=== PATIENT | male | born 1950 | race Caucasian/White ===

== ENCOUNTER 2020-03-25 12:35 | Inpatient (IN) | payer MEDICARE, OTHER ==
[2020-03-25] VITALS (18 sets, daily range): BP systolic 104–152; BP diastolic 52–81
[~2020-03-25] VITALS: Ht 177.8 cm; Wt 115.7 kg
[~2020-03-25 12:35] MED LIST: ACCUNEB SO1.25 MG/1 INH; ASPIR 8181 MG PO; CALCIUM CITRAT480 GM PO; COZAAR 50 MG TA50 M1 PO; D3-5050000 UNIT PO; FLEXERIL PO; FORADIL12 MCG IH; IRON325 PO; METFORMIN HCL500 MG PO; MULTIVITAMINS1 EAC7 PO; NITROGLYCERIN0.4 MG SUBLING; OMEPRAZOLE20 M1 PO; PANTOPRAZOLE SO40 M1 PO; PLAVIX 75 MG TA75 M1 PO; TYLENOL EXTRA500 MG PO; ZOCOR20 MG PO
[2020-03-25 13:00] LABS: ABSOLUTE BASOPHILS 0.1 thou/uL (0.0-0.2); ABSOLUTE EOSINOPHILS 0.2 thou/uL (0.0-0.7); ABSOLUTE MONOCYTES 0.6 thou/uL (0.0-1.2); ABSOLUTE NEUTROPHILS 6.9 thou/uL (1.6-8.1); BASOPHILS 0.8 %; EOSINOPHILS 2.2 %; HEMATOCRIT 43.4 % (42.0-52.0); HEMOGLOBIN 15.3 gm/dL (14.0-18.0); LYMPHOCYTES 27.4 %; MCH 31.7 pg (26.0-34.0); MCHC 35.2 g/dL (28.0-37.0); MONOCYTES 5.9 %; MPV 9.4 fl. (7.2-11.1); NUCLEATED RBCS 0 /100WBC; PLATELET COUNT* 241 thou/uL (150-400); POLYS 63.7 %; RBC 4.82 mil/uL (4.50-6.00); RDW-CV 14.7 % (10.5-14.5); WBC 10.8 thou/uL (4.0-11.0)
[2020-03-25 13:14] LABS: CREATININE 1.4 mg/dL (0.6-1.3); POTASSIUM 3.9 mmol/L (3.5-5.1)
[2020-03-25 13:15] LABS: APTT 23.1 Seconds (25.0-31.3); PROTIME 10.7 Seconds (9.20-11.50)
[2020-03-25 13:26] LABS: ALBUMIN 4.2 g/dL (3.4-5.0); TOTAL BILIRUBIN 0.6 mg/dL (<0.1-1.0); TOTAL PROTEIN 7.8 g/dL (6.4-8.2)
[2020-03-25] MEDS ORDERED: CHLORTHALIDONE25 MG PO (13:49)
[2020-03-25] MEDS ORDERED: JARDIANCE25 MG PO (13:50)
[2020-03-25] MEDS ORDERED: TOPROL XL25 MG PO (13:51)
[2020-03-25] MEDS ORDERED: OLODATEROL (13:52)
[2020-03-25] MEDS ORDERED: MIRALAX119 GM PO (13:52)
--- NOTE | 2020-03-25 16:52 | CARD ---
[address] [address] CARDIAC CATH REPORT Name: JORDEN ARGUELLO JR Room: [address] IN [facility]#: [id number] Admission: 03/25/20 Attend Phys: Brennon Kapadia MD, Discharge: Date of : 52 Report #: [id number] THIS REPORT FOR: //name// cc: CAITLIN QUINTANILLA MD, CHADWICK MD ~ APPROVED REPORT Study performed: 03/25/2020 12:30:30 Patient Details Patient Status: ED Room #: The patient is a 70 year-old male Event Personnel Brennon Kapadia State [employer] Agent, Lorena Raman RN, Pradeep Huber RTR Scrub, Farzaneh Meeks RTR Monitor Procedures Performed Art Access - R femoral artery Left Heart Cath w/or w/o Coronaries WINTER Revasc AMI Total/Sub Single DIAG Hemostasis w/ Angioseal Indication STEMI Risk Factors Hypercholesterolemia, Hypertension Previous Procedures/Diagnoses Previous PCI Admission/Lab Medications/Medications given during procedure Angiomax bolus and infusion Procedure Narrative The patient was brought emergently to the Cardiac Catheterization Laboratory and was prepped and draped in a sterile manner. The right femoral was infiltrated with 2% Lidocaine subcutaneous anesthesia. A [place] 6 FR sheath was inserted into the right femoral artery. Coronary angiography was performed using coronary diagnostic catheters. The right coronary system was accessed and visualized with a Diagnostic 6 Fr JR 4 catheter. The left coronary system was accessed and visualized with a Diagnostic 6 Fr JL 4 catheter. The left ventricle was accessed and visualized with a Diagnostic 6 Fr Pigtail catheter. Left ventricular/[place] [address] CARDIAC CATH REPORT Name: JORDEN ARGUELLO JR Room: [address]#: [id number] Admission: 03/25/20 Attend Phys: Brennon Kapadia MD, Discharge: Date of : 51 Report #: [id number] catheter pullback. Left ventriculogram was performed in PELAEZ projection. Pre-demployment femoral angiogram was performed . Closure device was deployed with a Fr Angioseal STS 6Fr. The patient tolerated the procedure well and there were no complications associated with the procedure. There was no hematoma. Intraoperative Conscious Sedation No sedation was given. Case start time was 13: 12 and case end time was 14:18. Fluoro Time: 11.3 minutes Dose: DAP 308915 cGycm2 1588 mGy Contrast Type and Amount: Visipaque 240 ml Diagnostic Cath Left Main 0% narrowing LAD 80% mid LAD stenosis with 100% occlusion of the first diagonal branch with intraluminal thrombus Circumflex 75% narrowing of the midportion of the first posterolateral branch of the distal circumflex Right Coronary Dominant vessel with 30% proximal and distal narrowings Left Ventriculography The left ventricle is normal in size with normal contractility. The left ventricular ejection fraction is estimated to be 65%. Left ventricular wall motion abnormalities are present. There is no mitral insufficiency. Mild high anterolateral hypokinesis is noted Hemodynamics The aortic pressure is 147/64 mmHg with a mean of 98 mmHg. The left ventricular pressure is 139/3 mmHg with a mean of mmHg. The left ventricular end diastolic pressure is 25 mmHg. There was no gradient across the aortic valve upon pullback. PCI Technique Lesion Anticoagulation was achieved with Angiomax Drip. Patient was preloaded with Angiomax IV 17 ml. Percutaneous coronary intervention was performed on the first diagnonal branch segment. The lesion stenosis prior to intervention was 100% with JOSE MANUEL 0 flow. A 6F XB LAD 4.0 Guide Catheter was used to engage the left ostium. A IG: ProwaterFlex 180CM Interventional Guidewire was used to cross the [place] [address] CARDIAC CATH REPORT Name: JORDEN ARGUELLO JR Room: [address]#: [id number] Admission: 03/25/20 Attend Phys: Brennon Kapadia MD, Discharge: Date of : 51 Report #: [id number] A Balloon catheter Euphora SC 2.0x12mm was inserted and inflated up to 14.00atm for 9seconds. Additional Inflation: 16.00atm for 9seconds. Additional Inflation: 10.00atm for 7seconds. STENT DEPLOYMENT A drug-eluting stent [place] RX Stent 2.0X26mm was inserted and inflated up to 8.00atm for 8seconds. Additional Inflation: 9.00atm for 13seconds. POST STENT DEPLOYMENT BALLOON DILATION A Balloon catheter NC Euphora 2.25x 12 was inserted and inflated up to 10.00atm for 9seconds. Additional Inflation: 17.00atm for 8seconds. Additional Inflation: 18.00atm for 9seconds. Final angiography reveals 0 % stenosis with JOSE MANUEL 3 flow. COMMENTS Patient developed persistent accelerated idioventricular rhythm which remitted after 150 mg of amiodarone as a bolus over 3 minutes Conclusion 1. Acute anterolateral and high lateral STEMI 2. Significant coronary artery disease characterized by the following: A 80% mid LAD stenosis with 100% occlusion of the first diagonal branch of the LAD within a previously stented segment B 75% narrowing of the midportion of the first posterolateral branch of the nondominant circumflex C 30% proximal and distal narrowings of the dominant right coronary artery 2. Normal global left ventricular systolic function, estimated ejection fraction 65% with mild high anterolateral hypokinesis 3. Moderately severe elevation of left ventricular and diastolic pressure at rest 4. Successful PCI with deployment of drug-eluting stent at the site of 100% first diagonal occlusion with 0% residual narrowing JOSE MANUEL-3 flow to the distal [place] [address] CARDIAC CATH REPORT Name: JORDEN ARGUELLO JR Room: [address]#: [id number] Admission: 03/25/20 Attend Phys: Brennon Kapadia MD, Discharge: Date of : 51 Report #: [id number] Recommendations Cardiac Risk Reduction Program Aggressive Medical Therapy Medications Administered Ticagrelor Diagnostic Cath Approved by: Brennon Kapadia MD Date/Time: 03/25/2020 16:47:43 <ELECTRONICALLY SIGNED> By: Brennon Kapadia MD, FACC 03/25/20 165 50 50Brennon Kapadia MD, FAC /INF
--- NOTE | 2020-03-25 18:46 | NUR ---
PATIENT ADMITTED TO ROOM FOR STEMI ADMISSION. STABLE VITALS AT THIS TIME. AXOX4, ASSESSMENT CHARTED. NO CHEST PAIN AT THIS TIME. ANGIOSEAL GROIN SITE C/D/I. NO HEMATOMA. CAN BE OFF BEDREST AT 1900 THIS EVENING. CPAP AND CELL PHONE BROUGHT UP BY AND IN ROOM. NO CONCERNS AT THIS TIME. BED IN LOWEST POSITIN, CALL LIGHT IN REACH, PIPING DESIGN SPECIALIST IN PLACE.
[2020-03-26] VITALS (15 sets, daily range): BP systolic 110–148; BP diastolic 48–87
--- NOTE | 2020-03-26 04:02 | NUR ---
ASSUMED CARE AT 1900H, ON NC AT 2LPM AND TOLERATED. NO DISTRESS NOTED. NO CHEST PAIN AND NO BLEEDING NOTED. NO HEMATOMA ON THE GROIN. PT USED HIS CPAP AND SLEPT WELL. CONTINUE MONITORING AND TOWARD GOALS.
[2020-03-26 05:13] LABS: HEMATOCRIT 40.8 % (42.0-52.0); MCH 31.2 pg (26.0-34.0); MCHC 34.4 g/dL (28.0-37.0); MCV 90.5 fL (80.0-100.0); MPV 9.2 fl. (7.2-11.1); RBC 4.5 mil/uL (4.50-6.00); RDW-CV 14.7 % (10.5-14.5); WBC 9.5 thou/uL (4.0-11.0)
--- NOTE | 2020-03-26 07:28 | EKG ---
[place] [address] ELECTROCARDIOGRAM REPORT Name: JORDEN ARGUELLO JR Room: [address] IN ..#: [id number] Admission: 03/25/20 Attend Phys: Elia Chatman, Discharge: Date of : 52 Date of Service: 03/25/20 1542 Report #: [id number] THIS REPORT FOR: //name// [facility] Test Date: 2020-03-25 Test Time: 15:42:20 Pat Name: JORDEN ARGUELLO Department: Room: [facility] Gender: M Solderer: JESÚS : 1950 Requested By: Allie Singh Order Number: [id number] MD: Rio Chapman Measurements Intervals [place] Rate: 70 P: -25 SD: 256 QRS: 72 QRSD: 93 T: -23 QT: 397 QTc: 429 Interpretive Statements Sinus rhythm Ventricular premature complexes Prolonged SD interval Low voltage, extremity leads Minimal ST depression, inferior leads Compared to ECG 06/15/2019 08:15:16 Ventricular premature complex(es) now present Low QRS voltage now present ST (T wave) deviation now present Electronically Signed On 03-26-2020 7:26:54 CDT by Rio Chapman [email or web address] <ELECTRONICALLY SIGNED> By: Rio Chapman MD, [facility] 03/26/20 0726 1542 1542 Rio Chapman MD, [facility] /EPI
[2020-03-26 08:46] LABS: ALBUMIN 3.5 g/dL (3.4-5.0); ALKALINE PHOSPHATASE 50 U/L (46-116); ANION GAP 9 mmol/L (7-16); BUN 18 mg/dL (7-18); CALCIUM 8.5 mg/dL (8.5-10.1); CHLORIDE 106 mmol/L (98-107); CHOLESTEROL 123 mg/dL (<200); CO2 27 mmol/L (21-32); CREATININE 1.2 mg/dL (0.6-1.3); GLUCOSE 183 mg/dL (70-99); HDL CHOLESTEROL 35 mg/dL (>40); LDL CHOLESTEROL 52 mg/dL (<100); POTASSIUM 3.9 mmol/L (3.5-5.1); SERUM ASSESSMENT Clear; SGOT 59 U/L (15-37); SGPT 31 U/L (30-65); SODIUM 142 mmol/L (136-145); TC:HDL 3.5 Ratio (Not establshd); TOTAL BILIRUBIN 0.7 mg/dL (<0.1-1.0); TOTAL PROTEIN 6.8 g/dL (6.4-8.2); TRIGLYCERIDE 184 mg/dL (<150); VLDL 37 mg/dL (<40)
--- NOTE | 2020-03-26 09:29 | NUR ---
8550 ASSUMED CARE OF PATIENT. PLEASE SEE DOCUMENTED ASSESSMENT. CPAP OFF AND ON ROOM AIR
--- NOTE | 2020-03-26 12:01 | NUR ---
ICU rounds: Tele status. Pt to have a repeat cath tomorrow. Pt resides at home with his . Active and independent. Pt uses a cpap at night, no other DME. Hx of HH post knee replacement, no hx of SNF. Goal is home at dc, per Pt anticipate dc on . Following.
--- NOTE | 2020-03-26 15:25 | EKG ---
[place] [address] ELECTROCARDIOGRAM REPORT Name: JORDEN ARGUELLO JR Room: [address] ADM IN .R.#: [id number] Admission: 03/25/20 Attend Phys: Elia Chatman, Discharge: Date of : 52 Date of Service: 03/25/20 1236 Report #: [id number] THIS REPORT FOR: //name// [facility] ED Test Date: 2020-03-25 Test Time: 12:36:39 Pat Name: JORDEN ARGUELLO Department: Room: [facility] Gender: M Lamp Shade Maker: ALVIN : 1950 Requested By: Brennon Kapadia Order Number: [id number] Therese MD: Rio Chapman Measurements Intervals [place] Rate: 93 P: -19 AK: 178 QRS: 12 QRSD: 90 T: -38 QT: 364 QTc: 453 Interpretive Statements Sinus rhythm Multiple premature complexes, vent & supraven Repol abnrm suggests ischemia, inferior leads ST elevation, consider lateral injury Baseline wander in lead(s) V2 Compared to ECG 06/15/2019 08:15:16 Early repolarization now present Possible ischemia now present ST (T wave) deviation now present Myocardial infarct finding now present First degree AV block no longer present Electronically Signed On 03-26-2020 15:23:58 CDT by Rio Chapman [email or web address] <ELECTRONICALLY SIGNED> By: Rio Chapman MD, [facility] 03/26/20 1523 1236 1236 Rio Chapman MD, [facility] /EPI
--- NOTE | 2020-03-26 15:29 | EKG ---
[place] [address] ELECTROCARDIOGRAM REPORT Name: JORDEN ARGUELLO JR Room: [address] IN .R.#: [id number] Admission: 03/25/20 Attend Phys: Elia Chatman, Discharge: Date of : 52 Date of Service: 03/26/20 0600 Report #: [id number] THIS REPORT FOR: //name// [facility] Test Date: 2020-03-26 Test Time: 06:00:59 Pat Name: JORDEN ARGUELLO Department: Room: [facility] Gender: M Injury Prevention Coordinator: [id number] : 1950 Requested By: Brennon Kapadia Order Number: [id number] Therese MD: Rio Chapman Measurements Intervals [place] Rate: 60 P: -50 NV: 269 QRS: 48 QRSD: 103 T: 15 QT: 399 QTc: 399 Interpretive Statements Sinus rhythm Multiple premature complexes, vent & supraven Prolonged NV interval Low voltage, extremity leads Compared to ECG 03/25/2020 15:42:20 No significant changes noted Electronically Signed On 03-26-2020 15:27:53 CDT by Rio Chapman [email or web address] <ELECTRONICALLY SIGNED> By: Rio Chapman MD, [facility] 03/26/20 1527 9 06 Rio Chapman MD, [facility] /EPI
--- NOTE | 2020-03-26 17:08 | NUR ---
PATIENT PROGRESSING TOWARDS GOALS. PT IS NOW TELE STATUS. UP IN CHAIR MOST OF DAY. EDUCATED WITH CARDIAC REHAB.TITRATED TO ROOM AIR. GROIN SITE BENIGN. PLAN IS FOR CARDIAC CATH TOMORROW. CONSENT HAS BEEN OBTAINED. PT HAS BEEN IN CONTACT WITH FAMILY VIA PHONE.
[2020-03-27] VITALS (15 sets, daily range): BP systolic 110–166; BP diastolic 61–86
[2020-03-27 04:02] LABS: ABSOLUTE EOSINOPHILS 0.2 thou/uL (0.0-0.7); ABSOLUTE LYMPHOCYTES 1.8 thou/uL (0.8-5.3); ABSOLUTE MONOCYTES 0.5 thou/uL (0.0-1.2); ABSOLUTE NEUTROPHILS 4.4 thou/uL (1.6-8.1); BASOPHILS 0.4 %; EOSINOPHILS 2.6 %; HEMATOCRIT 40.1 % (42.0-52.0); HEMOGLOBIN 13.9 gm/dL (14.0-18.0); LYMPHOCYTES 26.3 %; MCH 31.3 pg (26.0-34.0); MCHC 34.6 g/dL (28.0-37.0); MCV 90.5 fL (80.0-100.0); MONOCYTES 6.6 %; MPV 8.9 fl. (7.2-11.1); NUCLEATED RBCS 0 /100WBC; PLATELET COUNT* 173 thou/uL (150-400); POLYS 64.1 %; RBC 4.43 mil/uL (4.50-6.00); RDW-CV 14.7 % (10.5-14.5); WBC 6.9 thou/uL (4.0-11.0)
[2020-03-27 04:27] LABS: CALCIUM 8.3 mg/dL (8.5-10.1); CREATININE 1.1 mg/dL (0.6-1.3); POTASSIUM 3.7 mmol/L (3.5-5.1)
--- NOTE | 2020-03-27 04:43 | NUR ---
ASSUMED CARE AT 1900H, ON RA AND TOLERATED. SEEN ON CHAIR. AMBULATED IN THE ROOM WITH NO SOA AND CHEST PAIN. NO BLEEDING AND NO CHANGES IN EKG. ON CPAP WHEN SLEEPING. FOR MONKEY KEEPER TODAY AT NOON AND KEPT ON CLEAR LIQUID DIET. CONSENT SIGNED AND ATTACHED IN THE CHART. CONTINUE MONITORING AND TOWARD GOALS.
--- NOTE | 2020-03-27 09:22 | NUR ---
RECEIVED REPORT FROM BECKIE CALDERON. PT TO [facility] FLOOR AROUND 0855. PT A&O X4, VSS. THIS RN AGREES WITH THE ASSESSMENT AND CHARTING OF BECKIE CALDERON. PT DENIES PAIN. NO CONCERNS. FLUIDS INFUSING. MEDS PER EMAR. PT TO GO FOR CATH LATER TODAY. TORCH CUTTER PLACED. PT CURRENTLY SITTING UP IN BEDSIDE CHAIR. CALL LIGHT IS WITHIN REACH. HOURLY ROUNDING PERFORMED. LOW FALL RISK PRECAUTIONS IN PLACE.
--- NOTE | 2020-03-27 12:46 | NUR ---
ICU rounds: Pt to have repeat cath today, plan dc to home tomorrow.
--- NOTE | 2020-03-27 17:12 | EKG ---
[place] [address] ELECTROCARDIOGRAM REPORT Name: JORDEN ARGUELLO JR Room: [address] ADM IN M.R.#: [id number] Admission: 03/25/20 Attend Phys: Garrick Bryan Discharge: Date of : 52 Date of Service: 03/27/20 1505 Report #: [id number] THIS REPORT FOR: //name// [facility] Test Date: 2020-03-27 Test Time: 15:05:15 Pat Name: JORDEN JOS Department: Room: [address] Gender: M Kiln Feeder: JESÚS : 1950 Requested By: Brennon Kapadia Order Number: [id number] Therese MD: Brennon Kapadia Measurements Intervals [place] Rate: 61 P: -35 SC: 255 QRS: 48 QRSD: 105 T: 85 QT: 433 QTc: 437 Interpretive Statements Sinus rhythm Prolonged SC interval Low voltage, extremity leads Nonspecific T abnormalities, lateral leads Compared to ECG 03/26/2020 06:00:59 T-wave abnormality now present Electronically Signed On 03-27-2020 17:10:50 CDT by Brennon Kapadia [email or web address] <ELECTRONICALLY SIGNED> By: Brennon Kapadia MD, [facility] 03/27/20 1710 1505 1505 Brennon Kapadia MD, [facility] /EPI
--- NOTE | 2020-03-27 18:00 | NUR ---
PT COMPLETED CATH AND ARRIVED BACK TO TELE FLOOR. POST CATH VITALS CHARTED. PT WITH NO COMPLAINTS FOR THE REST OF THE SHIFT. ABLE TO GET UP AT 2000. FALL PRECAUTIONS IN PLACE. CALL LIGHT IS WITHIN REACH. HOURLY ROUNDING PERFORMED.
[2020-03-28] VITALS: BP 131/73
--- NOTE | 2020-03-28 04:30 | NUR ---
ASSUMED PT CARE AT APPROX 1930. PT IS AWAKE AND ORIENTED X4. PT IS TRACING SR w/1DAVB ON THE SPEEDBOAT OPERATOR. PT DENIES CHEST PAIN/DISCOMFORT. DRESSING ON RIGHT GROIN REMAINS CDI. NO ACUTE CHANGES OVERNIGHT. CALL LIGHT WITHIN REACH. HOURLY ROUNDING DONE FOR PT SAFETY.
[2020-03-28 04:50] VITALS: BP 138/80
[2020-03-28 05:05] LABS: ABSOLUTE EOSINOPHILS 0.2 thou/uL (0.0-0.7); ABSOLUTE LYMPHOCYTES 1.4 thou/uL (0.8-5.3); ABSOLUTE MONOCYTES 0.5 thou/uL (0.0-1.2); BASOPHILS 0.3 %; EOSINOPHILS 2.7 %; HEMATOCRIT 37.4 % (42.0-52.0); LYMPHOCYTES 19.3 %; MCH 31.6 pg (26.0-34.0); MCHC 34.8 g/dL (28.0-37.0); MCV 90.6 fL (80.0-100.0); MPV 8.9 fl. (7.2-11.1); NUCLEATED RBCS 0 /100WBC; PLATELET COUNT* 160 thou/uL (150-400); POLYS 70.7 %; RBC 4.12 mil/uL (4.50-6.00); RDW-CV 14.3 % (10.5-14.5); WBC 7.1 thou/uL (4.0-11.0)
[2020-03-28 05:32] LABS: ALBUMIN 3.2 g/dL (3.4-5.0); CALCIUM 7.9 mg/dL (8.5-10.1); CREATININE 1.1 mg/dL (0.6-1.3); POTASSIUM 3.5 mmol/L (3.5-5.1); TOTAL BILIRUBIN 0.6 mg/dL (<0.1-1.0); TOTAL PROTEIN 5.9 g/dL (6.4-8.2)
[2020-03-28 05:42] LABS: TROPONIN-I LEVEL 3.47 ng/mL (<0.06)
[2020-03-28 08:00] VITALS: BP 130/74
[2020-03-28] MEDS ORDERED: BRILINTA90 MG PO (11:53)
[2020-03-28 12:00] VITALS: BP 131/69
--- NOTE | 2020-03-28 12:03 | CARD ---
[address] [address] CARDIAC CATH REPORT Name: JORDEN ARGUELLO JR Room: [address] IN [facility]#: [id number] Admission: 03/25/20 Attend Phys: Brennon Kapadia MD, Discharge: Date of : 51 Report #: [id number] THIS REPORT FOR: //name// cc: CAITLIN QUINTANILLA MD, CHADWICK MD ~ ADDENDUM APPROVED REPORT Study performed: 03/27/2020 13:05:09 Patient Details Patient Status: In-Patient Room #: The patient is a 70 year-old male Event Personnel Brennon Kapadia Bark Grinder, Thomas Plaza Kramer, Jessie RTR Monitor, Filippo Mitchell RN glass cleaner Performed Art Access - R femoral artery Left Heart Cath w/or w/o Coronaries WINTER w/Atherectomy Single LAD Hemostasis w/ Angioseal Indication Unstable angina Risk Factors Hypercholesterolemia, Hypertension Previous Procedures/Diagnoses Previous PCI, Previous MT Admission/Lab Medications/Medications given during procedure Angiomax bolus and infusion Procedure Narrative The patient was brought urgently to the Cardiac Catheterization Laboratory and was prepped and draped in a sterile manner. The right femoral was infiltrated with 2% Lidocaine subcutaneous anesthesia. A [place] 6 FR sheath was inserted into the right femoral artery. Coronary angiography was performed using coronary diagnostic catheters. The right coronary system was accessed and visualized with a Diagnostic 6 Fr JR 4 catheter. The left coronary system was accessed and visualized with a Diagnostic 6 Fr JL 4 catheter. The left ventricle was accessed and visualized with a Diagnostic 6 Fr Pigtail catheter. Left ventricular/Aortic Valve gradient assessed via catheter pullback. Pre-demployment femoral [place]ogram [place] [address] CARDIAC CATH REPORT Name: JORDEN ARGUELLO JR Room: [address]#: [id number] Admission: 03/25/20 Attend Phys: Brennon Kapadia MD, Discharge: Date of : 51 Report #: [id number] Closure device was deployed with a Fr Angioseal STS 6Fr. The patient tolerated the procedure well and there were no complications associated with the procedure. There was no hematoma. Intraoperative Conscious Sedation Sedation start time: 13:45 Case end Time: 14:26 Fentanyl 25 mcg Versed 2 mg Fluoro Time: 13.4 minutes Dose: DAP 29488 cGycm2 1160 mGy Contrast Type and Amount: Visipaque 270 ml Diagnostic Cath Left Main 0% narrowing LAD 80% calcified mid LAD in-stent stenosis with a widely patent recently stented first diagonal branch Circumflex Large non-dominant vessel with 20% mid vessel; there was 70% narrowing of the midportion of the first posterolateral branch of the distal circumflex Right Coronary Dominant vessel with 20% proximal and 30% distal narrowings Left Ventriculography Left Ventriculography was not performed. Hemodynamics The aortic pressure is 158/58 mmHg with a mean of 79 mmHg. The left ventricular pressure is 127/1 mmHg with a mean of mmHg. The left ventricular end diastolic pressure is 6 mmHg. PCI Technique Lesion Anticoagulation was achieved with Angiomax Drip. Patient was preloaded with Angiomax IV 17 ml. Percutaneous coronary intervention was performed on the mid left anterior descending artery segment. The lesion stenosis prior to intervention was 80% with JOSE MANUEL 3 flow. A 6F XB LAD 3.5 Guide Catheter was used to engage the left ostium. A IG: [place] 190cm Interventional Guidewire was used to cross the lesion. BALLOON DILATION A Balloon catheter [place] Euphora 2.5x12 was inserted and inflated up to 18.00atm for 13seconds. Additional Inflation: 20.00atm for 5seconds. A cutting balloon catheter Angiosculpt PTCA 2.5 x 10mm was inserted and inflated up to 10 KENNY for 13 seconds,12 KENNY for 16 seconds, 12 KENNY for 14 seconds, and 14 KENNY for17 [place] [address] CARDIAC CATH REPORT Name: JORDEN ARGUELLO JR Room: [address] IN ..#: [id number] Admission: 03/25/20 Attend Phys: Brennon Kapadia MD, Discharge: Date of : 52 Report #: [id number] STENT DEPLOYMENT A drug-eluting stent [place] RX Stent 2.5X22mm was inserted and inflated up to 12.00atm for 11seconds. Additional Inflation: 14.00atm for 12seconds. POST STENT DEPLOYMENT BALLOON DILATION A Balloon catheter [place] RX 2.75 X 12 was inserted and inflated up to 16.00atm for 9seconds. Additional Inflation: 18.00atm for 10seconds. Final angiography reveals 10 % stenosis with JOSE MANUEL 3 flow. Conclusion 1. Significant coronary artery disease characterized by the following: A 80% calcified mid LAD in-stent stenosis with a widely patent recently deployed first diagonal stent B 20% narrowing the midportion of the prominent the nondominant circumflex; there was 70% narrowing of the midportion of the first posterolateral branch of the distal circumflex C dominant right coronary artery with 20% proximal and 30% distal narrowing 2. Mild systemic systolic hypertension 3. Successful angioplasty atherotomy/atherectomy and stenting of the mid LAD with 10% residual narrowing following stent deployment Recommendations Cardiac Risk Reduction Program Aggressive Medical Therapy Medications Administered Aspirin (any) [place] [address] CARDIAC CATH REPORT Name: JORDEN ARGUELLO JR Room: [address] IN ..#: [id number] Admission: 03/25/20 Attend Phys: Brennon Kapadia MD, Discharge: Date of : 52 Report #: [id number] Diagnostic Cath Approved by: Brennon Kapadia MD Date/Time: 03/28/2020 11:59:54 <ELECTRONICALLY SIGNED> By: Brennon Kapadia MD, [facility] 03/28/201201 01 01Brennon Kapadia MD, [facility] /INF
--- NOTE | 2020-03-28 14:15 | NUR ---
DISCHARGE TO HOME ALL DISCHARGE INFORMATION GIVEN, ACKNOWLEDGED, SIGNED COPIES GIVEN IV AND HEART MONITOR REMOVED PERSONAL BELONGINGS RETURNED PATIENT ASSISTED OUT VIA WC GOOD CONDITION TO WAITING CAR
--- NOTE | 2020-03-28 15:53 | D ---
[address] [address] DISCHARGE SUMMARY Name: JORDEN ARGUELLO JR Room: [address]#: [id number] Admission: 03/25/20 Attend Phys: Brennon Kapadia MD, Discharge: 03/28/20 Date of : 52 Report #: [id number] THIS REPORT FOR: //name// cc: CAITLIN QUINTANILLA MD, CHADWICK MD ~ THIS REPORT FOR: //name// CC: Elia Kapaida DATE OF SERVICE: 03/25/2020 FINAL DISCHARGE DIAGNOSES: 1. Acute ST segment elevation and lateral infarction. 2. Coronary artery disease. 3. Hypertension. 4. Hyperlipidemia. 5. History of cerebrovascular accident. 6. History of a patent foramen ovale, which was closed. 7. Obstructive sleep apnea. PROCEDURES: 03/25/2020 -- emergent cardiac catheterization with stenting in the first diagonal branch of the LAD, 03/27/2020 -- cardiac catheterization with atherectomy and stenting of the mid LAD. HOSPITAL COURSE: The patient is a 70-year-old male with a history of coronary artery disease and prior PCIs. He presented emergently on 03/25/2020 with acute anterolateral and high lateral ST segment elevation. Catheterization revealed total occlusion of her previously stented first diagonal branch of the LAD. A single drug-eluting stent was deployed with 0% residual narrowing. The peak troponin postprocedurally johann to 15. He also was noted to have significant mid LAD stenosis, which was not approached in that acute setting. On 03/27/2020, re-catheterization revealed widely patent first diagonal stent with 80% calcified stenosis of the mid LAD. I performed arthrotomy/atherectomy with stenting of the mid LAD with 10% residual narrowing and JOSE MANUEL 3 flow of the distal vessel. He also had a 50% narrowing in a posterolateral branch of the circumflex, which was not approached anatomically. The patient did well postprocedurally and ambulated in the hallways without difficulty with good hemostasis at the right femoral site of catheterization. LABORATORY DATA: On 03/28 revealed sodium 141, potassium 3.5, BUN 14, creatinine 1.1. Hemoglobin 13.0, white blood cell count 7100 with 160,000 [place] [address] DISCHARGE SUMMARY Name: JORDEN ARGUELLO JR Room: [address]#: [id number] Admission: 03/25/20 Attend Phys: Brennon Kapadia MD, Discharge: 03/28/20 Date of : 52 Report #: [id number]. DISCHARGE MEDICATIONS: The patient was discharged to home in stable condition on 03/28/2020 on the following medications: Acetaminophen 1000 mg every 6 hours p.r.n., inhaled albuterol q. 6 hours, aspirin 81 mg daily, calcium citrate 480 grams daily, cholecalciferol and vitamin D3 50,000 units daily, cyclobenzaprine and Flexeril 10 mg t.i.d., Jardiance 25 mg daily, ferrous sulfate 325 mg b.i.d., losartan 50 mg daily, metformin 1000 mg b.i.d. to be resumed on 03/29/2020, metoprolol succinate 12.5 mg at bedtime, multivitamin 1 capsule daily, pantoprazole 40 mg daily, polyethylene glycol or MiraLax 17 grams daily, simvastatin 20 mg at bedtime, ticagrelor or Brilinta 90 mg b.i.d., and p.r.n. sublingual nitroglycerin. He is scheduled to return to see our nurse practitioner on 04/03/2020 at 1330 hours and his continuing care will be with Dr. Sal Nam. 35 minutes from 0900 to 0935 on 03/28/2020. <ELECTRONICALLY SIGNED> By: Brennon Kapadia MD, [facility] 03/28/20 1553 0940 [id number] Kapadia MD, [facility] /nt
--- NOTE | 2020-03-28 16:01 | EKG ---
[place] [address] ELECTROCARDIOGRAM REPORT Name: JORDEN ARGUELLO JR Room: [address] IN M.R#: [id number] Admission: 03/25/20 Attend Phys: Garrick Bryan Discharge: 03/28/20 Date of : 52 Date of Service: 03/28/20 0348 Report #: [id number] THIS REPORT FOR: //name// [facility] Test Date: 2020-03-28 Test Time: 03:48:11 Pat Name: JORDEN ARGUELLO Department: Room: [address] Gender: M Quality Compliance Coordinator: TR : 1950 Requested By: Brennon Kapadia Order Number: [id number] MD: Brennon Kapadia Measurements Intervals [place] Rate: 58 P: -38 [place]: 268 QRS: 40 QRSD: 106 T: 89 QT: 454 QTc: 446 Interpretive Statements Sinus rhythm Prolonged [place] interval Low voltage, extremity leads Nonspecific T abnormalities, lateral leads Compared to ECG 03/27/2020 15:05:15 No significant changes Electronically Signed On 03-28-2020 16:00:17 CDT by Brennon Kapadia [email or web address] <ELECTRONICALLY SIGNED> By: Brennon Kapadia MD, [facility] 03/28/20 1600 0348 0348 Brennon Kapadia MD, [facility] /EPI
== END 2020-03-28 14:10 | disposition home or self-care (01) | DRG 246 ==
LOC: M.ERS 12:35 → M.ICU 13:07 → M.TBA-CV 13:07 → M.ERS 13:07 → M.TBA-CV 14:46 → M.ICU 14:46 → M.2W 14:46 → M.ICU 15:04 → M.TBA-CV 15:04 → M.ICU 03-26 09:41 → M.2W 03-27 08:50
PROVIDERS: Internal Medicine; Personal Emergency Response Attendant; ADMIT Internal Medicine; ATTEND Internal Medicine
DX: T82.855A Stenosis of coronary artery stent, initial encounter (principal); I21.09 ST elevation (STEMI) myocardial infarction involving other coronary artery of anterior wall; I50.31 Acute diastolic (congestive) heart failure; I25.10 Atherosclerotic heart disease of native coronary artery without angina pectoris; Z96.652 Presence of left artificial knee joint; E11.9 Type 2 diabetes mellitus without complications; E66.9 Obesity, unspecified; I11.0 Hypertensive heart disease with heart failure; E78.5 Hyperlipidemia, unspecified; G47.33 Obstructive sleep apnea (adult) (pediatric); Y83.8 Other surgical procedures as the cause of abnormal reaction of the patient, or of later complication, without mention of misadventure at the time of the procedure; Z98.84 Bariatric surgery status; Z95.5 Presence of coronary angioplasty implant and graft; Z86.711 Personal history of pulmonary embolism; Z68.36 Body mass index [BMI] 36.0-36.9, adult; Z88.8 Allergy status to other drugs, medicaments and biological substances; Z79.82 Long term (current) use of aspirin; Z79.899 Other long term (current) drug therapy; Y92.89 Other specified places as the place of occurrence of the external cause; Z86.73 Personal history of transient ischemic attack (TIA), and cerebral infarction without residual deficits

== ENCOUNTER 2020-08-23 13:10 | Inpatient (IN) | payer OTHER ==
[2020-08-23] VITALS (14 sets, daily range): BP systolic 129–161; BP diastolic 62–84
[~2020-08-23] VITALS: Ht 180.3 cm; Wt 109.8 kg
[~2020-08-23 13:10] MED LIST changes: +BRILINTA90 MG PO; +CHLORTHALIDONE25 MG PO; +JARDIANCE25 MG PO; +MIRALAX119 GM PO; +OLODATEROL; +TOPROL XL25 MG PO
[2020-08-23 13:30] LABS: ABSOLUTE BASOPHILS 0.1 thou/uL (0.0-0.2); ABSOLUTE EOSINOPHILS 0.1 thou/uL (0.0-0.7); ABSOLUTE LYMPHOCYTES 1.4 thou/uL (0.8-5.3); ABSOLUTE MONOCYTES 0.5 thou/uL (0.0-1.2); ABSOLUTE NEUTROPHILS 9.1 thou/uL (1.6-8.1); BASOPHILS 0.5 %; EOSINOPHILS 0.7 %; HEMATOCRIT 44.4 % (42.0-52.0); HEMOGLOBIN 14.6 gm/dL (14.0-18.0); LYMPHOCYTES 12.1 %; MCH 29.5 pg (26.0-34.0); MCV 89.4 fL (80.0-100.0); MONOCYTES 4.9 %; MPV 8.4 fl. (7.2-11.1); NUCLEATED RBCS 0 /100WBC; PLATELET COUNT* 220 thou/uL (150-400); POLYS 81.8 %; RBC 4.97 mil/uL (4.50-6.00); RDW-CV 14.6 % (10.5-14.5); WBC 11.2 thou/uL (4.0-11.0)
[2020-08-23 13:39] LABS: CALCIUM 9.6 mg/dL (8.5-10.1); CREATININE 1.6 mg/dL (0.6-1.3)
[2020-08-23 13:41] LABS: APTT 22.8 Seconds (25.0-31.3); INR 1.1; PROTIME 11.4 Seconds (9.20-11.50)
[2020-08-23 13:52] LABS: CK-MB MASS 1.4 ng/mL (<0.5-3.6); MAGNESIUM 1.8 mg/dL (1.8-2.4); TOTAL PROTEIN 7.4 g/dL (6.4-8.2)
--- NOTE | 2020-08-23 17:12 | CARD ---
[address] [address] CARDIAC CATH REPORT Name: JORDEN ARGUELLO JR Room: [address] IN [facility]#: [id number] Admission: 08/23/20 Attend Phys: Terrell Mckinley MD, F Discharge: Date of : 52 Report #: [id number] THIS REPORT FOR: //name// cc: CAITLIN QUINTANILLA MD, CHADWICK MD ~ APPROVED REPORT Study performed: 08/23/2020 15:15:07 Patient Details Patient Status: ED Room #: 17 The patient is a 70 year-old male Event Personnel Pradeep Huber RTR Monitor, Hayley Ramirez RTR Elías Phillips David Size Cutter, Delia Venegas RN counselor manager Performed Left Heart Cath w/or w/o Coronaries [id number] [facility] Hemostasis with Hemoband Indication Abnormal ECG, Chest pain Risk Factors Hypercholesterolemia, Coronary Artery DiseaseHypertension, Diabetes Previous Procedures/Diagnoses Previous PCI Admission/Lab Medications/Medications given during procedure Heparin Unfract., Midazolam (Versed) IV 1 mg, Lidocaine Subcut 4 ml, Nitroglycerin IA 200 mcg, Nitroglycerin IA 200 mcg, Verapamil IV 2.5 mg, Heparin IV 5000 units Procedure Narrative The patient was brought urgently to the Cardiac Catheterization Laboratory and was prepped and draped in a sterile manner. The right wrist was infiltrated with 2% Lidocaine subcutaneous anesthesia. A Slender Glidesheath sheath was inserted into the right radial artery. Coronary angiography was performed using coronary diagnostic catheters. The right coronary system was accessed and visualized with a Diagnostic JR4 6Fr catheter. The left coronary system was accessed and visualized with a Diagnostic JL4 6Fr catheter. The left ventricle was accessed and visualized with a Diagnostic Straight [place]tail 6[address] [place] [address] CARDIAC CATH REPORT Name: JORDEN ARGUELLO JR Room: [address]#: [id number] Admission: 08/23/20 Attend Phys: Terrell Mckinley MD, F Discharge: Date of : 52 Report #: [id number] catheter. Left ventricular/Aortic Valve gradient assessed via catheter pullback. Left ventriculogram was performed in PELAEZ projection. Closure device was deployed with a 6 Fr vascband. The patient tolerated the procedure well and there were no complications associated with the procedure. There was no hematoma. Intraoperative Conscious Sedation Sedation start time: 1545 Case end Time: 1609 Versed 2 mg Fluoro Time: 3.1 minutes Dose: DAP 80015 cGycm2 986.08 mGy Contrast Type and Amount: Visipaque 150 ml Diagnostic Cath Left Main 0% stenosis LAD stent noted that started in the proximal lad and extended beyond the takeoff of the first diagonal branch had a 30% stenosis in the mid stent. There was a 50% stenosis noted in the mid lad Diagonal 1 long stent in the ostium of the diagonal branch had no significant stenosis, but there appeared to be a filling defect consistent with a thrombus, and slow antegrade flow was noted Circumflex 40% mid stenosis Right Coronary 30% proximal stenosis Left Ventriculography The left ventricular ejection fraction is estimated to be 40-45%. Left ventricular wall motion abnormalities are present. There is no mitral insufficiency. moderate hypokinesis noted of the anterolateral wall. Hemodynamics The aortic pressure is 144/63 mmHg with a mean of 92 mmHg. The left ventricular pressure is 141/10 mmHg with a mean of mmHg. The left ventricular end diastolic pressure is 10 mmHg. There was no gradient across the aortic valve upon pullback. Pullback from the left ventricle to the aorta revealed no gradient across the aortic valve. Conclusion 1. no significant stenosis noted in the lad stent. 2. no significant stenosis noted in the long stent in the ostium of the first diagonal branch, although there appeared to be a filling defect consistent with a thrombus, [place] [address] CARDIAC CATH REPORT Name: JORDEN ARGUELLO JR Room: [address] IN [facility]#: [id number] Admission: 08/23/20 Attend Phys: Terrell Mckinley MD, F Discharge: Date of : 52 Report #: [id number] 3. LVEF 40-45% Recommendations admit for anticoagulation therapy with lovenox Medications Administered Ticagrelor <ELECTRONICALLY SIGNED> By: Terrell Mckinley MD, FACC 08/23/201710 10 Dsushma Mckinley MD, FAC /INF
--- NOTE | 2020-08-23 17:24 | EKG ---
[place] [address] ELECTROCARDIOGRAM REPORT Name: JORDEN ARGUELLO JR Room: [address] IN [facility]#: [id number] Admission: 08/23/20 Attend Phys: Terrell Mckinley MD Discharge: Date of : 52 Date of Service: 08/23/20 1316 Report #: [id number] THIS REPORT FOR: //name// [facility] ED Test Date: 2020-08-23 Test Time: 13:16:28 Pat Name: JORDEN ARGUELLO Department: Room: Gender: Engagement Liaison: : 1950 Requested By: Tomas Yang Order Number: [id number] MD: Terrell Mckinley Measurements Intervals [place] Rate: 85 P: 55 WI: 233 QRS: 35 QRSD: 85 T: -39 QT: 367 QTc: 437 Interpretive Statements Sinus rhythm Atrial premature complexes Prolonged [place] interval Borderline low voltage, extremity leads Repol abnrm suggests ischemia, inferior leads Borderline ST elevation, lateral leads Compared to ECG 03/28/2020 03:48:11 Atrial premature complex(es) now present Early repolarization now present Possible ischemia now present ST (T wave) deviation now present Electronically Signed On 08-23-2020 17:24:19 AUTOMOTIVE TECHNICIAN by Terrell Mckinley [email or web address] <ELECTRONICALLY SIGNED> By: Terrell Mckinley MD, [facility] 08/23/20 1724 1316 1316 Terrell Mckinley MD, [facility] /EPI
--- NOTE | 2020-08-23 17:28 | CON ---
[address] [address] CONSULTATION Name: JORDEN ARGUELLO JR Room: [place] [address] ADM IN .Nathaniel.#: [id number] Admission: 08/23/20 Attend Phys: Terrell Mckinley MD, F Discharge: Date of : 52 Report #: [id number] THIS REPORT FOR: //name// cc: RONNIE QUINTANILLA MD, CHADWICK MD ~ DATE OF SERVICE: 08/23/2020 CARDIOLOGY CONSULTATION PRIMARY CARE PHYSICIAN: Ronnie Quintanilla MD HISTORY OF PRESENT ILLNESS: The patient is a 70-year-old white male who I was asked to see in the Emergency Room today after complaining of chest pain. The patient has a long and extensive past medical history. He apparently had 3 coronary stents placed almost 15 years ago at [facility] in [place]. Apparently 14 months ago, he had stent restenosis and I placed another coronary stent here at [place] in 05/2019. He stays fairly active. He then presented here to [place] in March with acute coronary syndrome. He apparently had evidence of an anterior STEMI. He was taken urgently to the cardiac catheterization lab by Dr. Kapadia. The first diagonal branch was completely occluded. There was also an 80% narrowing of the LAD. Ejection fraction 65%. He emergently placed a stent in the diagonal. Few days later, he placed a stent in the LAD. He was continued on Brilinta. He returned to see my nurse practitioner on 04/03 and he was doing well. The patient continues to go to the gym 3 times a week. Denies any recent chest pain, shortness of breath, palpitation or syncope. Today, he worked out at the gym. He then went home and sat down on the bed. He then felt a pressure in his chest, became diaphoretic. Took 2 nitroglycerin that did not seem to help. His drove him to the Emergency Room and he is being evaluated for further evaluation and treatment. He denied discomfort being related to food. He did have some belching. He has had no recent fever, cough, edema. Denied palpitations, syncope. Denied trauma to his chest or rash. PAST MEDICAL HISTORY: Otherwise significant for gastric bypass years ago for obesity. He had previous closure of a patent foramen ovale percutaneously when he was in his 40s at [facility] from the [place]. He has a history of hypertension, hyperlipidemia, sleep apnea. He had a previous TIA that affected his vision. CURRENT MEDICATIONS: Include albuterol for asthma, aspirin, losartan, metformin, metoprolol, Protonix, Crestor, Brilinta. ALLERGIES: HE HAS A PREVIOUS INTOLERANCE TO STEROIDS. FAMILY HISTORY: [place] [address] CONSULTATION Name: JORDEN ARGUELLO JR Room: [address] IN [facility]#: [id number] Admission: 08/23/20 Attend Phys: Terrell Mckinley MD, F Discharge: Date of : 52 Report #: [id number] SOCIAL HISTORY: He is . He and his live here in [place]. Quit smoking years ago. Quit drinking alcohol years ago. REVIEW OF SYSTEMS: He is overweight, being 5 feet 11 inches and 257 pounds. He has a history of asthma. He had hepatitis A years ago. No kidney disease. No cancer. No chronic skin condition. PHYSICAL EXAMINATION: GENERAL: Revealed an elderly male, lying in bed, appeared in no acute distress. VITAL SIGNS: He had a blood pressure of 140/80, pulse is 80. HEENT: He was anicteric. Conjunctivae are pink. Mucous membranes moist. NECK: Veins nondistended. No carotid bruits. CHEST: Clear to auscultation. CARDIOVASCULAR: Regular rate and rhythm without murmur. ABDOMEN: Obese. EXTREMITIES: Had trace edema. Dorsalis pedis pulse 1+ bilaterally. SKIN: Cool and dry. NEUROLOGIC: Nonfocal. DIAGNOSTIC DATA: His ECG showed a sinus rhythm, ST segment depression in leads II, III and aVF. His x-ray in the Emergency Room today showed tortuous aorta, clear lung davies. LABORATORY WORK: Sodium 139, creatinine 1.6. His troponins all 0.06. His white blood cell count 11.2, hemoglobin 14.6. IMPRESSION AND RECOMMENDATIONS: 1. Chest pain. No evidence of acute myocardial infarction. I think it is reasonable to discharge the patient at this time. I would continue aspirin and Brilinta and his beta perry. If he continues to have chest pain, I would consider stress testing as an outpatient. 2. Hypertension. The patient is on an ARB and beta perry. 3. Hyperlipidemia. The patient is on a statin drug. 4. History of obesity with previous gastric bypass. 5. Asthma. 6. Transient ischemic attack in the past. 7. Previous transcutaneous closure of a patent foramen ovale. 8. Chronic kidney disease. <ELECTRONICALLY SIGNED> By: Terrell Mckinley MD, [facility] 08/23/20 1728 1450 1522Dsushma Mckinley MD, FACC /nt
--- NOTE | 2020-08-23 19:53 | NUR ---
PT RECEIVED FROM SPORTS INSTRUCTOR AT 1745. PT HAS REMAINED ALERT, ORIENTED X 4. SKIN WARM AND DRY. REGULAR NONLABORED RESPIRATIONS. IV RIGHT AC WITH NS AT 100/HR VIA PUMP. TR BAND RIGHT RADIAL SITE IS INTACT. PTS RIGHT HAND HAS REMAINED PINK, WARM AND DRY TO TOUCH. POST PROCEDURE VS HAVE REMAINED STABLE. TR BAND HAS HAD 2ML OF AIR RELEASED ON 15 MINUTE INTERVALS. REPORT AND CARES TO MARTIN CALDERON. PT STABLE AT TIME OF THIS NOTE
--- NOTE | 2020-08-23 20:00 | NUR ---
RECEIVED REPORT AND ASSUMED CARE OF PT, ASSESSMENT COMPLETED. RADISTAT TO RT WRIST. OLD DRAINAGE NOTED. FINGERS WARM AND MOBILE WITH GOOD CAP REFILL. TELEMETRY ON SHOWING SR WITH 1ST AVB. NO COMPLAINTS VOICED. WILL CONT TO MONITOR AND ASSIST NEEDED.
[2020-08-24] VITALS: BP 150/77
[2020-08-24 04:00] VITALS: BP 144/74
[2020-08-24 04:43] LABS: CALCIUM 9.2 mg/dL (8.5-10.1); CREATININE 1.2 mg/dL (0.6-1.3)
--- NOTE | 2020-08-24 07:02 | NUR ---
SLEPT WELL TONIGHT WITH HOME CPAP ON. RT WRIST REMAINS WITHOUT HEMATOMA OR DRAINAGE. BANDAID INTACT. TELEMETRY CONT TO SHOW SR WITH 1ST AVB. HS GOALS OF REST AND SAFETY. HOURLY ROUNDING OBSERVED.
[2020-08-24 08:00] VITALS: BP 142/82
[2020-08-24 12:08] VITALS: BP 127/77
[2020-08-24 16:33] VITALS: BP 123/68
--- NOTE | 2020-08-24 18:25 | NUR ---
PT AMBULATED HUERTA TODAY SEVERAL TIMES. PT DENIES ANY PAIN. VSS.
[2020-08-24 20:00] VITALS: BP 139/72
[2020-08-25] VITALS (7 sets, daily range): BP systolic 114–140; BP diastolic 62–79
--- NOTE | 2020-08-25 04:52 | NUR ---
ASSESSMENT: PT REMAIN ALERT AND ORIENT TIMES FOUR. C/O MACHUCA AT THE BEGINNING OF THE SHIFT. REQUESTED TO HAVE TYLENOL EARLY. PT HAD BEEN REFUSING HIS ACETAMINOPHEN SCHEDULED. MACHUCA RESUMED. USED BIPAP DURING THE NIGHT, TOLERATING WELL. VSS, AFEBRILE. RIGHT WRIST RADSTAT OFF AT SHIFT, PRESSURE BANDAGE C/F/I. DENIES CP, SOB, N/V. WILL CONTINUE TO MONITOR.
[2020-08-25] MEDS ORDERED: LIPITOR40 MG PO (09:55)
--- NOTE | 2020-08-25 13:43 | NUR ---
ASSESSMENT DOCUMENTED. MEDS GIVEN PER E-MAR. IV PATENT. NO REPORTS OF PAIN THIS SHIFT. DISCHARGE ORDERS RECIEVED. IV TAKEN OUT, TELE MONITOR REMOVED. DISCHARGE EDUCATION AND RADIAL SITE CARE GIVEN. PT STATED UNDERSTANDING.
--- NOTE | 2020-08-26 12:52 | NUR ---
Cardiac Rehab follow up call. Patient states he is feeling well and has no further symptoms that brought him into the hospital. Refuses to have books sent to his home stating he has just reviewed them and has no further questions and that he recently completed OPCR program at [facility]. States angiogram site is healing well without signs or symptoms of infection. Understanads Brilinta BID and ASA 325 mg daily and importance. No further questions when asked.
== END 2020-08-25 13:48 | disposition home or self-care (01) | DRG 280 ==
LOC: M.CL 13:10 → M.ERS 13:10 → M.CL 15:28 → M.2W 16:32 → M.TBA-CV 16:32 → M.2W 17:41
PROVIDERS: Family Medicine; Internal Medicine Cardiovascular Disease; ADMIT Internal Medicine; ATTEND Internal Medicine
PROC: 4A023N7 Measurement of Cardiac Sampling and Pressure, Left Heart, Percutaneous Approach (ICD-10-PCS; principal; 2020-08-23)
PROC: B211YZZ Fluoroscopy of Multiple Coronary Arteries using Other Contrast (ICD-10-PCS; principal; 2020-08-23)
PROC: B215YZZ Fluoroscopy of Left Heart using Other Contrast (ICD-10-PCS; principal; 2020-08-23)
DX: T82.867A Thrombosis due to cardiac prosthetic devices, implants and grafts, initial encounter (principal); I21.4 Non-ST elevation (NSTEMI) myocardial infarction; N17.0 Acute kidney failure with tubular necrosis; I25.110 Atherosclerotic heart disease of native coronary artery with unstable angina pectoris; M19.90 Unspecified osteoarthritis, unspecified site; E11.65 Type 2 diabetes mellitus with hyperglycemia; J45.909 Unspecified asthma, uncomplicated; E78.5 Hyperlipidemia, unspecified; I12.9 Hypertensive chronic kidney disease with stage 1 through stage 4 chronic kidney disease, or unspecified chronic kidney disease; E11.22 Type 2 diabetes mellitus with diabetic chronic kidney disease; G47.33 Obstructive sleep apnea (adult) (pediatric); N18.9 Chronic kidney disease, unspecified; E66.9 Obesity, unspecified; Y83.8 Other surgical procedures as the cause of abnormal reaction of the patient, or of later complication, without mention of misadventure at the time of the procedure; Z96.652 Presence of left artificial knee joint; Z20.828 Contact with and (suspected) exposure to other viral communicable diseases; Z79.82 Long term (current) use of aspirin; Z86.711 Personal history of pulmonary embolism; Z79.84 Long term (current) use of oral hypoglycemic drugs; Z79.899 Other long term (current) drug therapy; Z98.84 Bariatric surgery status; Z88.8 Allergy status to other drugs, medicaments and biological substances; Y92.89 Other specified places as the place of occurrence of the external cause; Z95.5 Presence of coronary angioplasty implant and graft; Z87.891 Personal history of nicotine dependence; Z86.73 Personal history of transient ischemic attack (TIA), and cerebral infarction without residual deficits; Z68.33 Body mass index [BMI] 33.0-33.9, adult

== ENCOUNTER 2020-10-31 19:18 | Emergency (ER) | payer OTHER ==
[~2020-10-31] VITALS: Ht 177.8 cm; Wt 90.7 kg
[~2020-10-31 19:18] MED LIST changes: +LIPITOR40 MG PO
[2020-10-31] MEDS ORDERED: KEFLEX500 M1 PO (20:25)
[2020-10-31] MEDS ORDERED: APAP W/CODEINE1 TA2 PO (20:25)
[2020-10-31 21:09] VITALS: BP 154/86
== END 2020-10-31 21:10 | disposition home or self-care (01) ==
LOC: M.ERS 19:18
DX: S61.210A Laceration without foreign body of right index finger without damage to nail, initial encounter (principal); E11.9 Type 2 diabetes mellitus without complications; I25.10 Atherosclerotic heart disease of native coronary artery without angina pectoris; Z79.82 Long term (current) use of aspirin; Z79.899 Other long term (current) drug therapy; W26.0XXA Contact with knife, initial encounter; Y93.89 Activity, other specified; Y92.89 Other specified places as the place of occurrence of the external cause; Y99.8 Other external cause status

== ENCOUNTER 2021-03-28 13:50 | Emergency (ER) | payer OTHER ==
[~2021-03-28] VITALS: Ht 177.8 cm; Wt 105.2 kg
[~2021-03-28 13:50] MED LIST changes: +APAP W/CODEINE1 TA2 PO; +KEFLEX500 M1 PO
[2021-03-28] MEDS ORDERED: COZAAR 25 MG TA25 M1 PO (14:05)
[2021-03-28] MEDS ORDERED: OZEMPIC1 MG/0.71 SUBQ (14:08)
[2021-03-28 14:28] LABS: HEMATOCRIT 44.3 % (42.0-52.0); HEMOGLOBIN 15.1 gm/dL (14.0-18.0); MCH 30.9 pg (26.0-34.0); MCV 90.8 fL (80.0-100.0); MPV 9.1 fl. (7.2-11.1); NUCLEATED RBCS 0 /100WBC; PLATELET COUNT* 182 thou/uL (150-400); RBC 4.87 mil/uL (4.50-6.00); RDW-CV 14.3 % (10.5-14.5); WBC 10.5 thou/uL (4.0-11.0)
[2021-03-28 14:40] LABS: CALCIUM 9.8 mg/dL (8.5-10.1); CREATININE 1.4 mg/dL (0.6-1.3); POTASSIUM 3.7 mmol/L (3.5-5.1)
[2021-03-28 14:49] LABS: ABSOLUTE EOSINOPHILS 0.2 thou/uL (0.0-0.7); ABSOLUTE LYMPHOCYTES 0.7 thou/uL (0.8-5.3); ABSOLUTE MONOCYTES 0.1 thou/uL (0.0-1.2); ABSOLUTE NEUTROPHILS 9.5 thou/uL (1.6-8.1); PLATELET ESTIMATE ADEQUATE
[2021-03-28 14:54] LABS: ALBUMIN 4.2 g/dL (3.4-5.0); CK-MB MASS 1.4 ng/mL (<0.5-3.6); MAGNESIUM 1.9 mg/dL (1.8-2.4); TOTAL PROTEIN 7.1 g/dL (6.4-8.2)
[2021-03-28 16:40] VITALS: BP 152/83
--- NOTE | 2021-03-28 16:50 | EKG ---
[place] [address] ELECTROCARDIOGRAM REPORT Name: JORDEN ARGUELLO JR Room: [facility]#: [id number] Admission: 03/28/21 Attend Phys: Discharge: 03/28/21 Date of : 52 Date of Service: 03/28/21 1357 Report #: [id number] THIS REPORT FOR: //name// [facility] ED Test Date: 2021-03-28 Test Time: 13:57:42 Pat Name: JORDEN ARGUELLO Department: Room: Gender: Fire Services Plumber: : 1950 Requested By: Tomas Yang Order Number: [id number] MD: Brennon Kapadia Measurements Intervals [place] Rate: 78 P: -19 NE: 231 QRS: 5 QRSD: 94 T: -24 QT: 411 QTc: 469 Interpretive Statements Sinus rhythm Atrial premature complexes Prolonged [place] interval Low voltage, extremity leads Anteroseptal infarct, old Nonspecific repol abnormality, inferior leads; consider ischemia Minimal ST elevation, lateral leads; consider ischemia or injury Compared to ECG 08/23/2020 13:16:[address]-T abnormalities have diminished Possible ischemia persists ST (T wave) deviation still present Electronically Signed On 03-28-2021 16:50:09 CDT by Brennon Kapadia [email or web address] <ELECTRONICALLY SIGNED> By: Brennon Kapadia MD, [facility] 03/28/21 1650 1357 1357 Brennon Kapadia MD, [facility] /EPI
== END 2021-03-28 16:40 | disposition home or self-care (01) ==
LOC: M.ERS 13:50
PROVIDERS: Family Medicine
DX: R07.89 Other chest pain (principal); Z88.8 Allergy status to other drugs, medicaments and biological substances; Z79.899 Other long term (current) drug therapy; Z98.84 Bariatric surgery status; Z95.1 Presence of aortocoronary bypass graft; Z98.890 Other specified postprocedural states; E11.9 Type 2 diabetes mellitus without complications